=== PATIENT | male | born 1950 | race American Indian/Alaskan Native ===

== ENCOUNTER → 2018-06-04 | Day surgery (SDC) | payer MEDICARE ==
[~2018-06-04] MED LIST: AMOXICILLIN250 MG PO; CRESTOR10 MG PO; CRESTOR5 MG PO; DEXAMETHASONE SOD PHOS INJ 4 MG/ML VIAL ONE; FENTANYL CITRATE/PF 100MCG/2 ML INJ ONE; FINASTERIDE5 MG PO; FLONASE; GABAPENTIN300 MG PO; GENTAMICIN 120MG/NS 100ML 100 ML ONE; IOPAMIDOL 610MG/1ML 300 MG/ML VIAL IV ONE; KETOROLAC TROMETHAMINE 30 MG/ML VIAL ONE; LEVOCETIRIZINE D5 MG PO; LIDOCAINE HCL 2% LOCAL INJ 5 ML SDV VIAL INJ ONE; LOSARTAN POTAS100 MG PO; MELOXICAM7.5 MG PO; METFORMIN HCL500 MG PO; MIDAZOLAM HCL 2 MG/2 ML VIAL ONE; NORVASC5 MG PO; OMEPRAZOLE40 MG PO; ONDANSETRON HCL INJ 2 MG/ML VIAL ONE; PREVACID30 M1 PO; PROPOFOL IV EMULSION 10 MG/ML 20 ML VIAL ONE; SEVOFLURANE INHAL SOLN 250 ML PEN BTL ONE; ZYRTEC-D TABLE1 EACH PO
--- OUTSIDE RECORDS SUMMARY | 2018-06-04 06:32 | XMS REPORT | Clinical Summary ---
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 Role Phone Bobbi Boswell MD PCP Allergies Not on File Medications Not on file Active Problems Not on file Encounters Care Team Description Date Type Specialty Acosta Boswell MD Calculus of kidney 05/30/2018 Hospital Radiology Encounter [email or web address] Preoperative testing (Primary Dx) 05/06/2018 Orders Only Procedural Cardiology Acsota Boswell MD Calculus of kidney 04/23/2018 Hospital Radiology Encounter Acosta Boswell MD Calculus of kidney; Calculus of ureter 07/04/2017 Hospital Radiology Encounter after 06/03/2017 Social History Date Tobacco Use Types Packs/Day Years Used Never Assessed Sex Assigned at Date Recorded Not on file Industry Job Start Date Occupation Not on file Not on file Not on file Travel End Travel History Travel Start No recent travel history available. Last Filed Vital Signs Not on file Plan of Treatment Health Maintenance Due Date Last Done Comments COLON CANCER SCREENING 12/13/1999 SHINGRIX VACCINE (1 of 2) 12/13/1999 ZOSTER VACCINE 2009 PNEUMOCOCCAL 2014 POLYSACCHARIDE VACCINE AGE 65 AND OVER PNEUMOCOCCAL-13 2014 INFLUENZA VACCINE 01/29/2018 Procedures Comments Procedure Name Priority Date/Time Associated Diagnosis XR ABDOMEN 1 VW Routine 05/30/2018 Calculus of kidney 9:26 AM [employer] ECG 12-LEAD Routine 05/01/2018 Preoperative testing 12:07 PM CDT XR ABDOMEN 1 VW Routine 04/23/2018 Calculus of kidney 3:29 PM CDT XR ABDOMEN 1 VW Routine 07/04/2017 Calculus of kidney 9:30 AM [employer] Calculus of ureter after 06/03/2017 Results * XR Abdomen 1 Vw (05/30/2018 9:26 AM [employer]) Only the most recent of 3 results within the time period is included. Narrative Performed At EXAM:XR ABDOMEN 1 VW [facility] CLINICAL:N20.0 Calculus of kidney COMPARISON:04/23/2018 IMPRESSION: 1.Interval placement of right double-J ureteral stent. 2.Calcifications in the right lower quadrant abdomen/upper pelvis are unchanged and possibly represent vascular calcifications/phleboliths. 3.Moderate stool in the colon. 4.Lung bases are clear. 5.No acute osseous abnormality. [facility]-[id number] Procedure Note Interface, Radiology Results Incoming - 05/30/2018 9:33 AM [employer] EXAM: XR ABDOMEN 1 VW CLINICAL: N20.0 Calculus of kidney COMPARISON: 04/23/2018 IMPRESSION: 1. Interval placement of right double-J ureteral stent. 2. Calcifications in the right lower quadrant abdomen/upper pelvis are unchanged and possibly represent vascular calcifications/phleboliths. 3. Moderate stool in the colon. 4. Lung bases are clear. 5. No acute osseous abnormality. [facility]-[id number] Performing Organization Address City/[facility] Phone Number [facility] [address] [place] [address] * ECG 12 lead (05/01/2018 12:07 PM CDT) Ventricular rate 82 [facility] Atrial rate 82 [facility] [place] interval 164 [facility] QRSD interval 98 [facility] QT interval 390 [facility] QTC interval 455 [facility] P axis 1 72 [facility] QRS axis 1 -41 [facility] T wave axis 16 [facility] EKG impression Normal sinus rhythm-Left axis [facility] MUSE deviation-Nonspecific ST abnormality-Abnormal ECG-In automated comparison with ECG of 25-JUL-2009 06:37,-ST now depressed in Inferior gimzq-[id number]-fvhnqhiq change in ST segment in Lateral leads-- Performing Organization Address City/[facility] Phone Number [employer] [address] [place] [address] after 06/03/2017 Insurance Payer Benefit Subscriber ID Type Phone Address Plan / Group [facility] MEDICARE AARP xxxxxxxxx HMO MEDICARE COMPLETE MCR Advance Directives Patient has advance care planning documents on file. For more information, prema grimm contact: César Jaime [address] [place] [address]
--- NOTE | 2018-06-04 10:26 | Operative Report ---
DATE OF PROCEDURE: June 04, 2018 PREOPERATIVE DIAGNOSIS: Right double J-stent. POSTOPERATIVE DIAGNOSIS: Right double J-stent. OPERATIONS 1. Cystourethroscopy and right stent removal. 2. Right retrograde pyelogram. 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 Elizabeth ANESTHETIC: General. Mr. Batista is a 67-year-old male who underwent right midurethral ESWL. Postoperatively, the stone has completely pulverized. He presented at this time for stent removal. This patient was placed on the table in the lithotomy position, and was prepped and draped in a sterile manner after satisfactory anesthesia. A #23-Slovenian cystoscope was used, and cystourethroscopy was performed. The tail end of the stent was seen protruding through the right ureteral orifice, which was normal. Under direct vision and fluoroscopic control, the tail end of the stent was grasped and removed completely. Right retrograde pyelogram was then performed using a #8 bulb-tipped urethral catheter inserted in the right ureteral orifice, and 5 mL of contrast material was injected. Retrograde performed was normal with no evidence of stone fragments. The bladder was drained. Cystoscope removed. The patient taken to the recovery room in satisfactory condition. Plan for this patient is to be placed on Cipro 250 mg 1 twice a day for 5 days. Ultracet tablet 1 every 6 hours p.r.n., and was given 15. He is to return to the office in 6 weeks. Job#: [id number] [place]
[2018-06-04 10:40] VITALS: BP 119/59
== END | disposition home or self-care (01) ==
LOC: OR 06:29
PROVIDERS: ATTEND Specialist
DX: Z46.6 Encounter for fitting and adjustment of urinary device (principal); E11.9 Type 2 diabetes mellitus without complications; I10 Essential (primary) hypertension; E78.5 Hyperlipidemia, unspecified; M54.9 Dorsalgia, unspecified; Z79.84 Long term (current) use of oral hypoglycemic drugs; Z87.891 Personal history of nicotine dependence
CPT/HCPCS: 36415; 52005; 74420; 82948; C1758; J1100; J1580; J1885; J2001; J2250; J2405; J2704; Q9967